=== PATIENT | male | born 1965 | race Caucasian/White ===

== ENCOUNTER 2025-06-02 22:56 | Emergency (ER) | payer BC, SELFPAY ==
--- NOTE | 2025-06-02 22:59 | HMH.EDGENADL ---
Discharge Plan Referrals Follow up/Referrals: Provider,Referral, [Primary Care Provider, Medical] - See instructions Clinical Impressions Clinical Impression: AAA (abdominal aortic aneurysm), Back pain, Chest pain, Leukocytosis Stand Alone Forms Stand Alone Forms: Transfer Record - ED Print Language Print Language: Chinese Discharge ED Provider: Mikel Albert General Adult HPI General Chief complaint: PAIN Stated complaint: chest pain Time Seen by Provider: 06/02/25 22:57 History of Present Illness HPI narrative: Patient is a 59-year-old male with no known medical history. He is a 1 pack/day smoker. He presents today due to back and chest pain here. He reports that on Tuesday, he had left-sided back pain that was sharp and stabbing that has been worsening throughout the last couple of days now radiating around to the left anterior chest. He fears that is a tearing sensation. He reports it is not necessarily worse on exertion and does not lift less. No significant shortness of breath no orthopnea. No lower extremity edema. Never had a blood clot. Denies any trauma to the area. Denies any fevers cough congestion runny nose other sick like symptoms or sick contacts. Related Data Allergies Allergy/AdvReac Type Severity Reaction Status Date / Time No Known Allergies Allergy Verified 06/02/25 23:06 [facility] Disclaimer: The information contained in this section may have been updated after the patient was seen, as this information can be updated by other users. Social History Smoking Status: Current every day smoker alcohol intake: never current occupational status: employed Travel in the last 8 weeks?: None ROS Obtained: Yes All systems reviewed & no additional complaints except as documented Physical Exam General General appearance: alert and in no apparent distress Head Head exam: atraumatic and normocephalic Eye Eye exam: Present PERRL and EOMI ENT ENT exam: Present normal oropharynx Neck Neck exam: Present full ROM and trachea midline Chest Chest inspection: Present symmetric chest wall rise Respiratory Respiratory exam: Present normal lung sounds bilaterally; Absent stridor Cardiovascular Cardiovascular exam: Present regular rate and normal rhythm Abdominal Exam Abdominal exam: Present soft; Absent distention or tenderness Extremities Exam Extremities exam: Present full ROM Neurological Exam Neurological exam: Present alert and oriented X3 Psychiatric Psychiatric exam: Present normal mood Skin Skin exam: Present warm and dry Medical Decision Making Medical Records Screening: Per USPSTF and CDC recommendations, given the prevalence of disease in our region, it is our hospital?s policy to screen for HIV and viral Hepatitis for all patients aged 18 and over and those with ongoing risk factors. Taras Inquiry Pt receiving controlled substance: No Vital Signs: 06/02/25 23:01 06/02/25 23:12 06/02/25 23:13 Temperature 98.1 F Temperature Source Oral Pulse Rate 77 77 Pulse Rate [Right] 89 Respiratory Rate 16 14 Blood Pressure 186/128 H Blood Pressure [Right Arm] 216/139 H Blood Pressure Mean [Right Arm] 164 02 Sat by Pulse Oximetry 98 96 Oxygen Delivery Method Room Air 06/02/25 23:13 06/02/25 23:28 06/02/25 23:30 Temperature Temperature Source Pulse Rate 73 76 Pulse Rate [Right] Respiratory Rate 14 12 12 Blood Pressure 187/119 H 211/134 H 211/134 H Blood Pressure [Right Arm] Blood Pressure Mean [Right Arm] 02 Sat by Pulse Oximetry 95 96 97 Oxygen Delivery Method 06/02/25 23:48 06/03/25 00:01 Temperature Temperature Source Pulse Rate 64 Pulse Rate [Right] Respiratory Rate 14 Blood Pressure 211/118 H 157/100 H Blood Pressure [Right Arm] Blood Pressure Mean [Right Arm] 02 Sat by Pulse Oximetry 96 Oxygen Delivery Method Lab Data Lab Results 06/02/25 22:57: WBC 12.3 H, RBC 5.18, Hgb 16.0, Hct 48.0, MCV 92.7, MCH 30.9, MCHC 33.3, RDW 14.3, Plt Count 305, MPV 9.5, Neut % (Auto) 64.1, Lymph % (Auto) 27.2, Mckean % (Auto) 5.9, Eos % (Auto) 1.5, Baso % (Auto) 0.8, Neut # (Auto) 7.9 H, Lymph # (Auto) 3.3, Mckean # (Auto) 0.7, Eos # (Auto) 0.2, Baso # (Auto) 0.1, PT 10.5, INR 0.94, Sodium 140, Potassium 4.0, Chloride 105, Carbon Dioxide 27, Anion Gap 12.0, BUN 15, Creatinine 0.80, Estimated Creat Clear 110, Estimated GFR 99, Est GFR ( Amer) 119, Glucose 94, Calcium 10.0, Magnesium 1.9, Total Bilirubin 0.5, AST 30, ALT 15, Alkaline Phosphatase 115, Troponin I < 0.01, Total Protein 8.4 H, Albumin 4.8, Globulin 3.6 H, Albumin/Globulin Ratio 1.3, Lipase 68 06/02/25 22:57 06/02/25 22:57 Orders (Tests/Meds): ED MEDICATIONS Generic Name Dose Route Start Last Admin Trade Name Freq PRN Reason Stop Dose Admin Sodium Chloride 10 ml 06/02/25 23:25 06/02/25 23:27 Sodium Chloride 0.9% 10ml Syr (Rad Only) IV 07/02/25 23:24 10 ml NEEDED PRN Administration Maintain IV Site Discontinued Medications Generic Name Dose Route Start Last Admin Trade Name Freq PRN Reason Stop Dose Admin Aspirin 324 mg 06/02/25 23:11 06/02/25 23:27 Aspirin 81mg Chewable Tablet PO 06/02/25 23:12 324 mg ONCE ONE Administration Iopamidol 80 ml 06/02/25 23:25 06/02/25 23:27 Iopamidol-370 (76%);100ml Bottle IV 06/02/25 23:26 80 ml ONCE ONE Administration Labetalol HCl 10 mg 06/02/25 23:44 06/02/25 23:48 Labetalol 5mg/Ml 20ml Mdv IV 06/02/25 23:45 10 mg ONCE ONE Administration Morphine Sulfate 4 mg 06/02/25 23:11 06/02/25 23:25 Morphine 4mg/Ml Syringe IV 06/02/25 23:12 4 mg ONCE ONE Administration Ondansetron HCl 4 mg 06/02/25 23:11 06/02/25 23:25 Ondansetron 4mg/2ml Vial IV 06/02/25 23:12 4 mg ONCE ONE Administration Sodium Chloride 40 ml 06/02/25 23:25 06/02/25 23:27 0.9 % Sodium Chloride 50 Ml Vial IV 06/02/25 23:26 40 ml ONCE ONE Administration ORDERS Category Date Time Status CT angio abdomen pelvis Stat Cat Scan 06/02/25 23:[address] angio chest - dissection Stat Cat Scan 06/02/25 23:10 Completed CBC w/Auto Diff [Complete Blood Count Auto Diff] Stat Lab 06/02/25 22:57 Completed CMP [Comprehensive Metabolic Panel] Stat Lab 06/02/25 22:57 Completed Lactic Acid Stat Lab 06/02/25 23:34 Ordered Lipase Stat Lab 06/02/25 22:57 Completed MAG [Magnesium] Stat Lab 06/02/25 22:57 Completed PT INR [Prothrombin Time INR] Stat Lab 06/02/25 22:57 Completed Trop I [Troponin I] Stat Lab 06/02/25 22:57 Completed Troponin I Q3H Lab 06/03/25 02:15 Ordered Troponin I Q3H Lab 06/03/25 05:15 Ordered ECG Data Tracing #1: I reviewed this ECG and interpreted as documented below: Normal sinus rhythm with no obvious acute ischemic ST change. Meets criteria for LVH. Not acutely actionable. Medical Decision Narrative: In summary, this 59-year-old male presents to the emergency department today with back pain chest pain. On initial evaluation patient is afebrile, but significantly hypertensive with systolics in the 210s. On exam, he is warm well-perfused with full pulses brisk capillary refill in all extremities. Grossly neurovascularly intact. No increased work of breathing on my examination lung sounds are clear to station bilaterally and heart is regular rate and rhythm with no murmurs rubs or gallops.. Differential diagnosis includes but is not limited to aortic dissection, pneumothorax, ACS, GA, PE, costochondritis, lumbar strain. Based on these concerns, I ordered emergent CTA chest and abdomen. Basic hematologic labs including ACS workup with troponin. I dependently interpreted his cross-sectional imaging that was obtained emergently to demonstrate a large 6-1/2 cm abdominal aortic aneurysm with mural thrombus. I had interactive discussion with the radiologist who agrees with this finding. Does seem to be encroaching upon his right renal artery. Reassuringly he is still making urine and his creatinine is within normal limits. Slight leukocytosis to 12,000, but otherwise no evidence of anemia no CHLOÉ no electrolyte disturbance. Troponin undetectable. This patient is critically ill. I spent 41 minutes in critical care time discussing with outside consulting services and frequent reassessments. Hyper tension responded well to 10 mg of IV labetalol, systolics in the 150s now. Patient still having pain, will redose opiate pain medication with IV morphine. Had an interactive discussion with Dr. Emiliano Hernandez at the [facility] transfer [place] who agrees to admit the patient for an ED to ED transfer. Patient be transferred in hemodynamically stable condition. Of note, social determinants of health include poor health literacy and no PCP.. Critical Care Critical Care Time Critical Care Time: Yes Attestation: On 06/02/25, the high probability of a clinically significant, sudden or life threatening deterioration of the following system(s) required my full and direct attention, intervention and personal management. The time I documented below is in addition to time spent performing reported procedures but includes the following listed in this critical care notation. Total Time Total Critical Care Time: 41
[2025-06-02 23:01] VITALS: BP 216/139; PULSE 89; RESP 16; TEMP 36.7; O2SAT 98; BMI 23.1
--- NOTE | 2025-06-02 23:10 | CT_ITS ---
PROCEDURE INFORMATION: Exam: CTA Chest With Contrast Exam date and time: 06/02/2025 11:21 PM Age: 59 years old Clinical indication: Other: Tearing back to chest pain; Additional info: Tearing back to chest pain, c/f dissection TECHNIQUE: Imaging protocol: Computed tomographic angiography of the chest with contrast. Exam focused on the arteries. 3D rendering (Not supervised by radiologist): MIP and/or 3D reconstructed images were created by the technologist. Radiation optimization: All CT scans at this facility use at least one of these dose optimization techniques: automated exposure control; mA and/or kV adjustment per patient size (includes targeted exams where dose is matched to clinical indication); or iterative reconstruction. Contrast material: ISOUVE 370; Contrast volume: 80 ml; Contrast route: INTRAVENOUS (IV); COMPARISON: CT ANGIO ABDOMEN PELVIS 06/02/2025 11:21 PM FINDINGS: Pulmonary arteries: Contrast opacification of pulmonary arteries is below threshold for CT pulmonary angiogram study but no filling defects seen. Aorta: There is mild dilation of the ascending aorta measures 3.6 cm. Calcific atherosclerosis of the ascending aorta. Mild calcific atherosclerosis descending thoracic aorta. Lungs: No focal infiltrates. Pleural spaces: Unremarkable. No pneumothorax. No pleural effusion. Heart: Unremarkable. No cardiomegaly. No pericardial effusion. Coronary arteries: Coronary artery calcifications. Lymph nodes: Right hilar adenopathy image 5/66. Scattered subcentimeter AP window nodes ranging in size up to 1.3 cm. Bones/joints: Unremarkable. No acute fracture. Soft tissues: Unremarkable. Other findings: No evidence for aneurysm or dissection. IMPRESSION: No evidence for aortic aneurysm or dissection in the chest.
--- NOTE | 2025-06-02 23:10 | CT_ITS ---
PROCEDURE INFORMATION: Exam: CTA Abdomen and Pelvis With Contrast Exam date and time: 06/02/2025 11:21 PM Age: 59 years old Clinical indication: Other: Tearing back to chest pain; Additional info: Tearing back to chest pain, c/f dissection TECHNIQUE: Imaging protocol: Computed tomographic angiography of the abdomen and pelvis with contrast. Exam focused on the arteries. 3D rendering (Not supervised by radiologist): MIP and/or 3D reconstructed images were created by the technologist. Radiation optimization: All CT scans at this facility use at least one of these dose optimization techniques: automated exposure control; mA and/or kV adjustment per patient size (includes targeted exams where dose is matched to clinical indication); or iterative reconstruction. Contrast material: ISOUVE 370; Contrast volume: 80 ml; Contrast route: INTRAVENOUS (IV); COMPARISON: CT ANGIO CHEST 06/02/2025 11:21 PM FINDINGS: Esophagus: The esophagus is normal. Aorta: Abdominal aortic aneurysm measuring 6.5 cm. The aneurysm extends for 11 cm superior to inferior coronal image 7/94 and extends the level of the aortic bifurcation.. Moderate calcific atherosclerosis of the aorta. The aorta demonstrates moderate atherosclerotic calcification. Aortoiliac calcific atherosclerosis. Celiac trunk and mesenteric arteries: The celiac artery is patent. The SMA is patent. Renal arteries: The left renal artery originates above the aneurysm axial image 4/131-132 and is patent. 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 Right iliac arteries: No occlusion or significant stenosis. Left iliac arteries: No occlusion or significant stenosis. Liver: The liver is normal. Gallbladder and biliary ducts: The gallbladder is normal. Pancreas: Pancreas appears normal. Spleen: Spleen is normal Adrenal glands: The adrenal glands appear normal. Kidneys and ureters: Left kidney appears normal. There is a pelvic right kidney. Stomach and bowel: The duodenum is draped over the aneurysm axial image 4/146. The cecum is a anomalously located in the right upper quadrant. No secondary signs of appendicitis. The stomach is normal. Scattered colonic diverticula. Nonspecific bowel gas pattern. Retained stool in the colon. Appendix: See Stomach and bowel finding. Intraperitoneal space: Unremarkable. No free air. No significant fluid collection. Lymph nodes: No free air or fluid or adenopathy. Urinary bladder: The bladder is normal. Reproductive: Unremarkable as visualized. Bones/joints: No acute fracture. Soft tissues: The aneurysm neck below the renal artery measures 2.6 x 2.4 cm image 4/134. The neck length above the aneurysm is 4 cm coronal image 7/95.. Fat filled right inguinal hernia. Other findings: Extensive mural thrombus seen around the aneurysm which has an irregular lumen image 4/167. The iliac and common femoral artery vessels are patent. IMPRESSION: 1. No free air or fluid or adenopathy. 2. Abdominal aortic aneurysm measuring 6.5 cm. 3. The aneurysm extends for 11 cm superior to inferior coronal image 7/94 and extends the level of the aortic bifurcation.. 4. The aneurysm neck below the renal artery measures 2.6 x 2.4 cm image 4/134. 5. The neck length above the aneurysm is 4 cm coronal image 7/95.. 6. Extensive mural thrombus seen around the aneurysm which has an irregular lumen image 4/167. 7. Moderate calcific atherosclerosis of the aorta. 8. The celiac artery is patent. 9. The SMA is patent. 10. The left renal artery originates above the aneurysm axial image 4/131-132 and is patent. 11. 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 12. The aorta demonstrates moderate atherosclerotic calcification. 13. Aortoiliac calcific atherosclerosis. 14. The iliac and common femoral artery vessels are patent. 15. The duodenum is draped over the aneurysm axial image 4/146. 16. The cecum is a anomalously located in the right upper quadrant. No secondary signs of appendicitis.
[2025-06-02 23:12] VITALS: BP 186/128; PULSE 77; RESP 14; O2SAT 96
[2025-06-02 23:13] VITALS: BP 187/119; PULSE 73; PULSE 77; RESP 14; O2SAT 95
[2025-06-02 23:22] LABS: Alanine Aminotransferase 15 U/L (12-78); Albumin Level 4.8 g/dl (3.5-5.0); Albumin/Globulin Ratio 1.3 (1.1-1.8); Alkaline Phosphatase 115 U/L (38-126); Anion Gap 12.0 mEq/L (5-15); Aspartate Amino Transferase 30 U/L (17-59); Bilirubin,Total 0.5 mg/dl (0.2-1.3); Blood Urea Nitrogen 15 mg/dl (9-20); Calcium 10.0 mg/dl (8.4-10.2); Carbon Dioxide 27 mmol/L (22.0-30.0); Chloride 105 mmol/L (98-107); Creatinine Clearance Estimated 110 mL/min (50-200); Creatinine,Serum 0.80 mg/dl (0.66-1.25); Estimated Glomerular Filt Rate 99 ml/min (>60); GFR (African American) 119 ML/MIN (>60); Globulin 3.6 g/dL (1.3-3.2); Glucose 94 mg/dl (74-100); Hematocrit 48.0 % (42.0-52.0); Hemoglobin 16.0 g/dL (14.1-18.0); Immature Granulocytes % 0.5 %; Lipase 68 U/L (23-300); Magnesium 1.9 mg/dl (1.6-2.3); Mean Corpuscular HGB Conc 33.3 g/dL (31.8-35.4); Mean Corpuscular Hemoglobin 30.9 pg (27.0-31.2); Mean Corpuscular Volume 92.7 fl (80-94); Nucleated Red Blood Cells % 0 %; Platelet Count 305 K/mm3 (142-424); Potassium 4.0 mmoL/L (3.5-5.1); Red Blood Count 5.18 M/mm3 (4.60-6.20); Red Cell Distribution Width-SD 48.9 fL; Sodium 140 mmol/L (136-145); Total Protein,Serum 8.4 g/dl (6.3-8.2); White Blood Count 12.3 K/mm3 (4.8-10.8)
[2025-06-02] MEDS: MORPHINE 4MG/ML SYRINGE 4 MG IV (23:25)
[2025-06-02] MEDS: ONDANSETRON 4MG/2ML VIAL 4 MG IV (23:25)
[2025-06-02] MEDS: 0.9 % SODIUM CHLORIDE 50 ML VIAL 40 ML IV (23:27)
[2025-06-02] MEDS: ASPIRIN 81MG CHEWABLE TABLET 324 MG PO (23:27)
[2025-06-02] MEDS: IOPAMIDOL-370 (76%);100ML BOTTLE 80 ML IV (23:27)
[2025-06-02] MEDS: SODIUM CHLORIDE 0.9% 10ML SYR (RAD ONLY) 10 ML IV (23:27)
[2025-06-02 23:28] VITALS: BP 211/134; RESP 12; O2SAT 96
[2025-06-02 23:29] LABS: INR 0.94 (0.9-1.1); Prothrombin Time 10.5 seconds (10.1-12.5)
[2025-06-02 23:30] VITALS: BP 211/134; PULSE 76; RESP 12; O2SAT 97
--- OUTSIDE RECORDS SUMMARY | 2025-06-02 23:33 | XMS_ITS | Clinical Summary ---
Author Organization [facility] yste Address [address] [place] [address] Care Team Providers Care Pharmacy Laboratory Technician Name Role Phone Jeniffer Chavarria MD Primary Care Provider [phone] Social History Tobacco Use Types Packs/Day Years Used Date Smoking Tobacco: Never Assessed Abuse Screen Answer Date Recorded Unsafe at Home or Work/School Not on file Feels Threatened by Someone? Not on file 08/2023 Does Anyone Keep You from Co ntacting Others or Doint Things Outside the Home? Not on file 08/03/2023 Physical Sign of Abuse Present Not on file 1 Housing Stability Answer Date Recorded Current Living Arrangements Not on file 07/24 Potentially Unsafe Housing Conditions Not on lillie e 08/03/2023 Family and Community Support Answer Lázaro e Recorded Help with Day-to-Day Activities Not on file 08/03/2023 Lonely or Isolated Not on file 08/03/2023 Employment Answer Date Recorded Do you want help finding or keeping work or a miquel b? Not on file 08/03/2023 Disabilities Answer Date Recorded Concentrating, Remembering, or Making Decisions Difficulty Not on file 08/03/2023 Doing Errands Independently Difficulty Not on fi le 08/03/2023 Education Answer Date Recorded Help with school or training? Not on file Preferred Language Not on file 08/03/2023 Sex and Gender Information Value Date Recorded Sex Assigned at Not on file Legal Sex Male 2:04 PM EDT Gender Identity Not on file Sexual Orientation Not on file Plan of Treatment Health Maintenance Due Date Last Done Comments TDAP/TD VACCINES (1 - Tdap) 1983 COLOGUARD 2009 COLON CANCER SCREENING 5 YEAR SIGMOIDOSCOPY 2009 COLONOSCOPY [address] S[address] COLONOGRAPHY 2009 FECAL OCCULT BLOOD TEST 2009 FIT Testing (1 year) 2009 Pneumococcal Vaccine 50+ (1 of 1 - PCV) 2014 ZOSTER VACCINE (1 of 2) 2014 ANNUAL PHYSICAL 06/02/2017 HEPATITIS C SCREENING 06/02/2017 PT PLAN OF CARE 06/02/2017 COVID-19 Vaccine ( season) 2024 INFLUENZA VACCINE 07/24/2025 Insurance [facility] PPO Care Teams Pharmacy Laboratory Technician Relationship Specialty Start Date End Date Jeniffer Chavarria MD PCP - General Hand Surgery 05/03/17
[2025-06-02 23:34] LABS: Troponin I < 0.01 ng/ml (0.00-0.034)
[2025-06-02 23:48] VITALS: BP 211/118
[2025-06-02] MEDS: LABETALOL 5MG/ML 20ML MDV 10 MG IV (23:48)
[2025-06-03 00:01] VITALS: BP 157/100; PULSE 64; RESP 14; O2SAT 96
[2025-06-03 00:49] VITALS: BP 152/102; PULSE 62; RESP 16; TEMP 36.8; O2SAT 96
--- NOTE | 2025-06-03 22:53 | ECG_ITS ---
APPROVED REPORT Exam: Resting ECG HR:75 bpm ECG Measurements Heart Rate 75 AXES MS 150 P 75 QRSd 109 QRS 70 QT 398 T 74 QTc 427 Conclusion SINUS RHYTHM NORMAL ECG UNCONFIRMED REPORT Electronically signed by : Mikel Albert, 06/03/2025 03:12:11
== END 2025-06-03 01:09 | disposition short-term general hospital (02) ==
PROVIDERS: Emergency Provider Emergency Medicine
DX: R07.89 Other chest pain (principal); I71.40 Abdominal aortic aneurysm, without rupture, unspecified; M54.9 Dorsalgia, unspecified; D72.829 Elevated white blood cell count, unspecified; F17.200 Nicotine dependence, unspecified, uncomplicated
CPT/HCPCS: 71275; 74174; 80053; 83690; 83735; 84484; 85025; 85610; 93005; 96374; 96375; 99291; J1920; J2270; J2405; Q9967